=== PATIENT | female | born 1985 | race Caucasian/White ===

== ENCOUNTER 2024-05-13 13:16 | Outpatient (CLI) | payer OTHER ==
[~2024-05-13 13:16] MED LIST: Magnevist 469MG/ML 20 ML VIAL ONE
== END 2024-05-13 13:17 | disposition home or self-care (01) ==
LOC: CSHMRI 13:16
PROVIDERS: ATTEND Obstetrics & Gynecology
DX: R89.1 Abnormal level of hormones in specimens from other organs, systems and tissues (principal); E23.7 Disorder of pituitary gland, unspecified
CPT/HCPCS: 70553

== ENCOUNTER 2025-04-09 15:01 | Outpatient (CLI) | payer OTHER | END 2025-04-09 15:02 | disposition home or self-care (01) | LOC: CSHMAMMO 15:01 | PROVIDERS: ATTEND Family Medicine | DX: Z12.31 Encounter for screening mammogram for malignant neoplasm of breast (principal); R92.333 Mammographic heterogeneous density, bilateral breasts | CPT/HCPCS: 77063; 77067 ==